=== PATIENT | male | born 1960 ===

== ENCOUNTER 2016-12-29 22:17 | Emergency (ER) | payer SELFPAY ==
[2016-12-29 22:34] VITALS: O2SAT 98
--- NOTE | 2016-12-30 00:55 | ED PDOC ---
HPI: General Adult Time Seen by Provider: 12/29/16 23:28 Chief Complaint (Nursing): Foreign Body Chief Complaint (Provider): Foreign Body History Per: Patient History/Exam Limitations: no limitations Onset/Duration Of Symptoms: Hrs Have you had recent travel within the past 21 days to any of the following countries: [place], [place], [place] or [place]?: No Current Symptoms Are (Timing): Still Present Severity: Mild Additional Complaint(s): 56 y/o male patient presenting to the ED with difficulty breathing. PT states that around 3 hours ago eating pork, the pt felt himself swallow a bone. The PT states that he feels it traveling to his chest and that it feels "scratchy". The PT states he has no difficulty breathing and family, surgical and past medical history is unknown. Past Medical History Reviewed: Historical Data, Nursing Documentation, Vital Signs Vital Signs: Last Vital Signs Temp 97.9 F 12/29/16 22:29 Pulse 79 12/29/16 22:29 Resp 18 12/29/16 22:29 BP 169/109 H 12/29/16 22:29 Pulse Ox 98 12/30/16 02:14 - Medical History PMH: No Chronic Diseases - Surgical History Surgical History: No Surg Hx - Family History Family History: States: No Known Family Hx - Home Medications Home Medications: Ambulatory Orders Medication Instructions Recorded No Known Home Med 12/30/16 - Allergies Allergies/Adverse Reactions: Allergies Allergy/AdvReac Type Severity Reaction Status Date / Time No Known Allergies Allergy Verified 12/29/16 22:34 Review of Systems ROS Statement: Except As Marked, All Systems Reviewed And Found Negative Constitutional: Negative for: Weakness Cardiovascular: Negative for: Chest Pain, Palpitations Respiratory: Negative for: Cough, Shortness of Breath, Wheezing Gastrointestinal: Negative for: Nausea, Vomiting, Abdominal Pain, Diarrhea Physical Exam - Reviewed Nursing Documentation Reviewed: Yes Vital Signs Reviewed: Yes - Physical Exam Appears: Positive for: Non-toxic, Uncomfortable Head Exam: Positive for: ATRAUMATIC, NORMAL INSPECTION, NORMOCEPHALIC Skin: Positive for: Normal Color, Warm Eye Exam: Positive for: Normal appearance, EOMI, PERRL ENT: Positive for: Normal ENT Inspection Neck: Positive for: Normal, Painless ROM, Supple Cardiovascular/Chest: Positive for: Regular Rate, Rhythm. Negative for: Murmur Respiratory: Positive for: Normal Breath Sounds. Negative for: Respiratory Distress Neurologic/Psych: Positive for: Alert, Oriented. Negative for: Motor/Sensory Deficits - ECG O2 Sat by Pulse Oximetry: 98 (RA) Pulse Ox Interpretation: Normal Medical Decision Making Medical Decision Making: Time: 2349 Initial impression: Foreign Body Initial plan: --CHEST TWO VIEWS XRAY --IBUPROFEN 100MG --RAPID STREP GROUP 0150: PT feeling much better after administering of Lidocaine. No foreign body in chest found after reviewing chest x-ray. PT has been referred to PCP for follow up to recheck blood pressure (PRN) and talk to PCP in regards to high blood pressure. Scribe Attestation: Documented by Nanda Martel, acting as a scribe for Len Nicolas M.D. MD Scribe Attestation: All medical record entries made by the Scribe were at my direction and personally dictated by me. I have reviewed the chart and agree that the record accurately reflects my personal performance of the history, physical exam, medical decision making, and the department course for this patient. I have also personally directed, reviewed, and agree with the discharge instructions and disposition. Disposition - Clinical Impression Clinical Impression: Foreign body ingestion - Patient ED Disposition Is Patient to be Admitted: No - Disposition Referrals: Jose Guerrero MD [Medical Doctor] - Disposition: Routine/Home Disposition Time: 01:50 Condition: STABLE Instructions: Foreign Body Ingestion (ED) Print Language: BENINESE
[2016-12-30 03:03] VITALS: BP 160/110; PULSE 82; RESP 16; TEMP 98.3
--- NOTE | 2016-12-30 12:03 | RAD ---
HISTORY: swallowed a bone, CP COMPARISON: No prior. TECHNIQUE: Chest PA and lateral FINDINGS: LUNGS: No active pulmonary disease. PLEURA: No significant pleural effusion identified. No pneumothorax apparent. CARDIOVASCULAR: Normal. OSSEOUS STRUCTURES: No significant abnormalities. VISUALIZED UPPER ABDOMEN: Normal. OTHER FINDINGS: None. IMPRESSION: No active disease. No radiopaque/visualize foreign body.
== END 2016-12-30 01:40 | disposition home or self-care (01) ==
LOC: H.ER 22:17
DX: R09.89 Other specified symptoms and signs involving the circulatory and respiratory systems (principal)